=== PATIENT | male | born 1975 | race Caucasian/White ===

== ENCOUNTER 2020-08-07 18:37 | Emergency (ER) | payer OTHER ==
[2020-08-07 19:48] LABS: BUN/CREATININE RATIO 18 (0-10)
[2020-08-07 20:02] LABS: RED BLOOD COUNT 1.53 M/UL (4.20-5.50); WHITE BLOOD COUNT 3.6 K/UL (4.5-11.0)
[2020-08-07 20:04] LABS: HEMOGLOBIN 5.7 gm/dl (14.0-17.5)
== END 2020-08-08 | disposition short-term general hospital (02) ==
LOC: ER1 18:37
PROVIDERS: Family Medicine
DX: C95.90 Leukemia, unspecified not having achieved remission (principal); D75.9 Disease of blood and blood-forming organs, unspecified
CPT/HCPCS: 36430; 71045; 80053; 82550; 82553; 83605; 84484; 85025; 85610; 85730; 86850; 86900; 86901; 87040; 96374; 96375; 99285; J1200; J2543; J2930; J3370; P9037

== ENCOUNTER 2020-12-26 10:22 | Inpatient (IN) | payer OTHER ==
[~2020-12-26] VITALS: Ht 180.3 cm; Wt 93.0 kg
[2020-12-26 10:55] LABS: HEMOGLOBIN 15.8 gm/dl (14.0-17.5); RED BLOOD COUNT 5.01 M/UL (4.20-5.50)
[2020-12-26 11:14] LABS: BUN/CREATININE RATIO 16 (0-10)
[2020-12-26 16:55] LABS: BUN/CREATININE RATIO 16 (0-10)
[2020-12-26 20:18] LABS: BUN/CREATININE RATIO 20 (0-10)
[2020-12-27 04:15] LABS: BUN/CREATININE RATIO 21 (0-10)
[2020-12-27 05:38] LABS: HEMOGLOBIN 14.3 gm/dl (14.0-17.5); RED BLOOD COUNT 4.64 M/UL (4.20-5.50)
[2020-12-27 06:03] LABS: BUN/CREATININE RATIO 22 (0-10)
[2020-12-27 09:28] LABS: BUN/CREATININE RATIO 22 (0-10)
[2020-12-27] MEDS ORDERED: GLUCOSE TEST S1 EACH MC ×2 (10:03→13:14)
[2020-12-27] MEDS ORDERED: INSULIN AS100 UNIT/3 SQ (10:03)
[2020-12-27] MEDS ORDERED: METER-CHECK1 EACH MC (10:03)
[2020-12-27] MEDS ORDERED: LANTUS SOL100 UNIT/1 SQ (10:03)
[2020-12-27 13:18] LABS: BUN/CREATININE RATIO 22 (0-10)
--- NOTE | 2020-12-27 14:24 | NUR ---
PATIENT LEFT UNIT AMBULATORY IN NO ACUTE DISTRESS AT 1424 . PATIENT ALERT AND ORIENTED. PATIENT DISCHARED WITH PRESCRIPTIONS AND DISCHARGE PACKET. PATIENT HAD NO FURTHER QUESTIONS.
== END 2020-12-27 10:03 | disposition home or self-care (01) | DRG 637 ==
LOC: ER1 10:22 → CDU 13:45 → CCU 16:27
PROVIDERS: Emergency Medicine; Internal Medicine; Physician Assistant; ADMIT Internal Medicine
DX: E11.65 Type 2 diabetes mellitus with hyperglycemia (principal); E11.00 Type 2 diabetes mellitus with hyperosmolarity without nonketotic hyperglycemic-hyperosmolar coma (NKHHC); G93.41 Metabolic encephalopathy; E72.51 Non-ketotic hyperglycinemia; J98.11 Atelectasis; Z20.822 Contact with and (suspected) exposure to COVID-19; I10 Essential (primary) hypertension; F17.210 Nicotine dependence, cigarettes, uncomplicated; Z79.4 Long term (current) use of insulin; Z91.14 Patient's other noncompliance with medication regimen; Z85.6 Personal history of leukemia; Z90.49 Acquired absence of other specified parts of digestive tract; Z23 Encounter for immunization
CPT/HCPCS: 36415; 36600; 70450; 71045; 80048; 80053; 81001; 82009; 82803; 82962; 83036; 83605; 83735; 84132; 85025; 87086; 90686; 93005; 96374; 99285; G0008; G0480